=== PATIENT | male | born 1945 | race Caucasian/White ===

== ENCOUNTER 2017-03-10 17:41 | Inpatient (IN) | payer OTHER, MEDICAID ==
[2017-03-10 20:05] LABS: BASOPHILS # (AUTO) 0.1 X10^3/uL (0.0-0.1); BASOPHILS % (AUTO) 0.4 % (0.2-1.0); HEMATOCRIT 34.9 % (42.0-54.0); HEMOGLOBIN 11.9 g/dL (13.5-18.0); LYMPHOCYTES # (AUTO) 1.3 X10^3/uL (1.3-2.9); LYMPHOCYTES % (AUTO) 5.2 % (21.0-51.0); MEAN CORPUSCULAR HEMOGLOBIN 31.4 pg (27.0-34.0); MEAN CORPUSCULAR HGB CONC 34.1 g/dL (33.0-35.0); MEAN PLATELET VOLUME 7.3 fL (7.4-11.0); MONOCYTES # (AUTO) 1.2 x10^3/uL (0.3-0.8); MONOCYTES % (AUTO) 4.9 % (0.0-13.0); NEUTROPHILS # (AUTO) 22.6 x10^3/uL (2.2-4.8); NEUTROPHILS % (AUTO) 89.5 % (42.0-75.0); PLATELET COUNT 280 X10^3/uL (150.0-450.0); RED BLOOD COUNT 3.79 X10^6/uL (4.7-6.0); RED CELL DISTRIBUTION WIDTH 13.2 % (11.6-16.5); WHITE BLOOD COUNT 25.3 X10^3/uL (3.6-10.0)
[2017-03-10] MEDS: ROCEPHIN VIAL 1 GM 1 GM in NS 100 ML IV + SPIKE MINIBAG* 100 ML IV SCH (20:09)
[2017-03-10] MEDS: NS 1000 ML 1,000 ML IV SCH (20:09)
[2017-03-10 20:19] LABS: PLATELET MORPHOLOGY COMMENT NORMAL (NORMAL)
[2017-03-10 20:27] VITALS: BMI 18.4
[2017-03-10 20:35] LABS: ALANINE AMINOTRANSFERASE 30 Units/L (12-78); ALBUMIN 3.1 g/dL (3.4-5.0); ALKALINE PHOSPHATASE 88 Units/L (46-116); ASPARTATE AMINO TRANSFERASE 24 Units/L (15-37); BLOOD UREA NITROGEN 22 mg/dL (7-18); CALCIUM 8.8 mg/dL (8.5-10.1); CARBON DIOXIDE 27.4 mmol/L (21-32); CHLORIDE 103 mmol/L (98-107); COR CA(FOR HYPOALB) 9.5 mg/dL (8.5-10.1); CREATININE 1.23 mg/dL (0.70-1.30); SODIUM 136 mmol/L (136-145); TOTAL PROTEIN 6.7 g/dL (6.4-8.2); eGFR BLACK RACES > 60 (>60); eGFR NON BLACK RACES > 60 (>60)
[2017-03-10 21:38] LABS: BILIRUBIN,URINE NEGATIVE (NEGATIVE); BLOOD/HEMOGLOBIN,URINE 2+ (NEGATIVE); GLUCOSE, URINE NEGATIVE (NEGATIVE); KETONES,URINE NEGATIVE (NEGATIVE); LEUKOCYTE ESTERASE ,URINE 3+ (NEGATIVE); NITRITES,URINE POSITIVE (NEGATIVE); PROTEIN,URINE 1+ (NEGATIVE); UROBILINOGEN,URINE NORMAL (NORMAL)
[2017-03-10 21:45] LABS: APPEARANCE,URINE SLIGHTLY HAZY (CLEAR); BACTERIA,URINE 2+ /HPF (NEGATIVE); COLOR,URINE YELLOW (YELLOW); SQUAMOUS EPITHELIAL CELL,UR RARE /HPF (NEGATIVE)
--- NOTE | 2017-03-10 23:30 | RAD ---
HISTORY: 71-year-old male with shortness of breath and fever. Study: Frontal view of the chest. Comparison: None. Findings: The trachea is midline. The cardiac silhouette is unremarkable with prominent perihilar lung marking s and interstitium. The lungs are clear without focal consolidation, effusion or pneumothorax. Soft tissues are unremarkable. Osseous structures are unremarkable. IMPRESSION: 1. No acute cardiopulmonary disease. Reported By:
[2017-03-11 05:39] LABS: BASOPHILS # (AUTO) 0.1 X10^3/uL (0.0-0.1); BASOPHILS % (AUTO) 0.3 % (0.2-1.0); EOSINOPHILS % (AUTO) 0.1 % (0.9-2.9); HEMATOCRIT 34.6 % (42.0-54.0); HEMOGLOBIN 11.8 g/dL (13.5-18.0); LYMPHOCYTES # (AUTO) 1.4 X10^3/uL (1.3-2.9); LYMPHOCYTES % (AUTO) 7.6 % (21.0-51.0); MEAN CORPUSCULAR HEMOGLOBIN 31.8 pg (27.0-34.0); MEAN CORPUSCULAR HGB CONC 34.1 g/dL (33.0-35.0); MEAN CORPUSCULAR VOLUME 93.4 fL (80.0-100.0); MEAN PLATELET VOLUME 7.6 fL (7.4-11.0); MONOCYTES # (AUTO) 0.8 x10^3/uL (0.3-0.8); MONOCYTES % (AUTO) 4.5 % (0.0-13.0); NEUTROPHILS # (AUTO) 16.1 x10^3/uL (2.2-4.8); NEUTROPHILS % (AUTO) 87.5 % (42.0-75.0); PLATELET COUNT 252 X10^3/uL (150.0-450.0); RED CELL DISTRIBUTION WIDTH 13.4 % (11.6-16.5); WHITE BLOOD COUNT 18.5 X10^3/uL (3.6-10.0)
[2017-03-11 06:02] LABS: ALANINE AMINOTRANSFERASE 31 Units/L (12-78); ALBUMIN 2.9 g/dL (3.4-5.0); ALKALINE PHOSPHATASE 73 Units/L (46-116); ASPARTATE AMINO TRANSFERASE 23 Units/L (15-37); BLOOD UREA NITROGEN 17 mg/dL (7-18); CALCIUM 8.5 mg/dL (8.5-10.1); CARBON DIOXIDE 26.6 mmol/L (21-32); CHLORIDE 105 mmol/L (98-107); COR CA(FOR HYPOALB) 9.4 mg/dL (8.5-10.1); CREATININE 0.99 mg/dL (0.70-1.30); SODIUM 138 mmol/L (136-145); TOTAL PROTEIN 6.5 g/dL (6.4-8.2); eGFR BLACK RACES > 60 (>60); eGFR NON BLACK RACES > 60 (>60)
[2017-03-11] MEDS ORDERED: TYLENOL 325 MG TAB PO PRN (09:05)
[2017-03-11] MEDS: ROCEPHIN VIAL 1 GM 1 GM in NS 100 ML IV + SPIKE MINIBAG* 100 ML IV SCH (09:13)
--- NOTE | 2017-03-11 10:16 | CT ---
History: Altered mental status and hypertension Study: CT head without contrast. Sagittal and coronal reformations were provided. Comparison: None Findings: The ventricles and sulci are prominent without mass effect. There is no intracranial hemorr wanda or mass or edema and there is no subdural collection of fluid. The paranasal sinuses are clear. The calvarium is intact. There is an old infarction with encephalomalacia in the right occipital lobe . There is a smaller old infarct in the left occipital lobe. 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
[2017-03-11] MEDS: NS 1000 ML 1,000 ML IV SCH (10:42)
--- NOTE | 2017-03-11 12:58 | DR.H&P ---
H&P - History & Physical for Day of: H&P Date: 03/10/17 - Chief Complaint Chief Complaint: ams, leukocytosis, fever, cough - Allergies Allergies/Adverse Reactions: Allergies Allergy/AdvReac Type Severity Reaction Status Date / Time No Known Drug Allergies Allergy Verified 03/10/17 19:28 - History of Present Illness History of Present Illness: PT IS 71 WM DIRECT ADMIT FROM [facility] WITH CO FEVER, INCREASED CONFUSION, COUGH AND ELEVATED WBC'S. PT STATES "I THINK I HAVE PNEUMONIA" PT ADMITTED FOR EVALUATION OF ACUTE ILLNESS, BLOOD CULTURES ON ADMISSION, CBC CMP, CXR AND UA. PT STARTED ON IV ATBX, CONTINUE HOME MEDS - Past Medical History Past Medical History: Anxiety, Arthritis, COPD, GERD - Past Surgical History Surgical History: Unknown - Social History Does patient currently use any type of tobacco product: Yes Have you used tobacco products in the last 12 months: Yes Type of Tobacco Use: Cigarettes How many years tobacco product used: 50 Packs per day or dips/chews per day: 5 CIGS A DAY Does any household member use tobacco: No Alcohol Use: None Drug Use: None - Medications Home Medications: Acetaminophen [TYLENOL 325 MG TAB *] 650 mg PO Q6H PRN 03/10/17 [History Confirmed 03/10/17] Buspirone HCl 10 mg [BUSPAR TAB 10 MG *] 5 mg PO TID 03/10/17 [History Confirmed 03/10/17] Citalopram Hydrobromide [Celexa 10 mg] 10 mg PO DAILY 03/10/17 [History Confirmed 03/10/17] Donepezil Hydrochloride [ARICEPT TAB 5 MG *] 5 mg PO HS 03/10/17 [History Confirmed 03/10/17] Folic Acid [FOLIC ACID TAB 1 MG *] 1 mg PO DAILY 03/10/17 [History Confirmed ] Guaifenesin 400 mg PO BID 03/10/17 [History Confirmed 03/10/17] Levetiracetam [Keppra liquid] 15 ml PO BID 03/10/17 [History Confirmed 03/10/17] Multivit-Min/Iron Fum/Folic AC [Vtjks-Ttdojqn-Uqsvyajz Tablet] 1 ea PO DAILY [History Confirmed 03/10/17] Omeprazole 20 mg PO DAILY 03/10/17 [History Confirmed 03/10/17] Pramipexole Dihydrochloride [MIRAPEX 0.25 MG *] 0.25 mg PO BID 03/10/17 [ History Confirmed 03/10/17] Trazodone HCl 100 mg PO HS 03/10/17 [History Confirmed 03/10/17] - Review of Systems Constitutional: Fever Eyes: No Symptoms Reported ENT: No Symptoms Reported Respiratory: Cough, Shortness of Breath, Sputum, Wheezing Cardiovascular: No Symptoms Reported Gastrointestinal: No Symptoms Reported Genitourinary: No Symptoms Reported Musculoskeletal: Back Pain Skin: No Symptoms Reported Neurological: Weakness - Physical Exam Vital Signs: Temperature 98.9 F Pulse Rate [Right Radial] 73 Pulse Rate 69 Respiratory Rate 20 Blood Pressure [Right Arm] 155/81 O2 Sat by Pulse Oximetry 94 Oriented: Person Eyes: Normal Ear: Normal Nose: Normal Throat: Normal Respiratory: Rhonchi Throughout, RLL Diminished, LLL Diminished Cardiovascular: Normal : Normal Auscultation: Bowel Sounds: Normal Palpation: Normal Tenderness: Normal Skin: Decreased Turgur Musculoskeletal: Back:Lumbar Psychiatric: Anxiety Affect: Anxious Speech Pattern: Clear, Appropriate - Assessment/Plan (1) Altered mental status Status: Acute Plan: CT HEAD ON ADMISSION,ADMIT LABS INCLUDE BLOOD CULTURES. RESUME HOME MEDS. BP MONITORING, CXR (2) Fever Status: Acute (3) COPD (chronic obstructive pulmonary disease) with acute bronchitis Status: Acute (4) UTI (urinary tract infection) Status: Acute
[2017-03-11] MEDS ORDERED: PROVENTIL NEB TX 0.083% 2.5MG/ 3ML NEB PRN (13:43)
[2017-03-11] MEDS ORDERED: ECOTRIN TAB 325 MG PO SCH (14:00)
[2017-03-11] MEDS: BUSPAR PO SCH ×2 (14:33→22:15)
[2017-03-11] MEDS: ASPIRIN PO SCH (14:33)
[2017-03-11] MEDS ORDERED: LEVETIRACETAM PO SCH (21:00)
[2017-03-11] MEDS: DESYREL PO SCH (22:15)
[2017-03-11] MEDS: MUCINEX EXPECTORANT PO SCH (22:15)
[2017-03-11] MEDS: MIRAPEX TAB 0.25 MG PO SCH (22:15)
[2017-03-11] MEDS: ARICEPT TAB 5 MG PO SCH (22:16)
[2017-03-12] MEDS: NS 1000 ML 1,000 ML IV SCH ×2 (02:32→21:17)
[2017-03-12 05:47] LABS: BASOPHILS % (AUTO) 0.4 % (0.2-1.0); EOSINOPHILS # (AUTO) 0.1 x10^3/uL (0.0-0.2); HEMATOCRIT 36.4 % (42.0-54.0); HEMOGLOBIN 12.4 g/dL (13.5-18.0); LYMPHOCYTES % (AUTO) 11.7 % (21.0-51.0); MEAN CORPUSCULAR HEMOGLOBIN 31.7 pg (27.0-34.0); MEAN CORPUSCULAR VOLUME 93.3 fL (80.0-100.0); MEAN PLATELET VOLUME 7.6 fL (7.4-11.0); MONOCYTES # (AUTO) 0.6 x10^3/uL (0.3-0.8); MONOCYTES % (AUTO) 6.4 % (0.0-13.0); NEUTROPHILS # (AUTO) 7.1 x10^3/uL (2.2-4.8); NEUTROPHILS % (AUTO) 80.5 % (42.0-75.0); PLATELET COUNT 241 X10^3/uL (150.0-450.0); RED CELL DISTRIBUTION WIDTH 13.5 % (11.6-16.5); WHITE BLOOD COUNT 8.8 X10^3/uL (3.6-10.0)
[2017-03-12] MEDS: BUSPAR PO SCH ×3 (05:48→21:19)
[2017-03-12 06:15] LABS: ALANINE AMINOTRANSFERASE 32 Units/L (12-78); ALKALINE PHOSPHATASE 73 Units/L (46-116); ASPARTATE AMINO TRANSFERASE 22 Units/L (15-37); BLOOD UREA NITROGEN 12 mg/dL (7-18); CALCIUM 8.6 mg/dL (8.5-10.1); CARBON DIOXIDE 24.9 mmol/L (21-32); CHLORIDE 105 mmol/L (98-107); COR CA(FOR HYPOALB) 9.4 mg/dL (8.5-10.1); SODIUM 139 mmol/L (136-145); TOTAL PROTEIN 6.9 g/dL (6.4-8.2); eGFR BLACK RACES > 60 (>60); eGFR NON BLACK RACES > 60 (>60)
[2017-03-12] MEDS: NICOTINE PATCH TD SCH (09:30)
[2017-03-12] MEDS ORDERED: NICOTINE PATCH TD ONE (09:35)
[2017-03-12] MEDS: PriLOSEC PO SCH (09:40)
[2017-03-12] MEDS: CELEXA PO SCH (09:40)
[2017-03-12] MEDS: MIRAPEX TAB 0.25 MG PO SCH ×2 (09:41→21:19)
[2017-03-12] MEDS: FOLIC ACID TAB 1 MG PO SCH (09:41)
[2017-03-12] MEDS: MUCINEX EXPECTORANT PO SCH (09:41)
[2017-03-12] MEDS: ASPIRIN PO SCH (09:43)
[2017-03-12] MEDS: ROCEPHIN VIAL 1 GM 1 GM in NS 100 ML IV + SPIKE MINIBAG* 100 ML IV SCH (09:43)
[2017-03-12] MEDS: ROBITUSSIN (PLAIN) PO SCH (09:58)
--- NOTE | 2017-03-12 18:53 | PCM.PROG ---
Progress Note - Progress Note for Day of Date: 03/12/17 - Subjective Subjective: COUGH, CHEST CONGESTION - Past Medical Family Social History Past Med/Fam/Surg Hx: No changes since H&P Allergies: Allergies No Known Drug Allergies Allergy (Verified 03/10/17 19:28) - Review of Systems ROS: No change since H&P - Vital Signs and I&O's Vital Signs: Temperature 98.3 F Pulse Rate [Right Radial] 111 Pulse Rate 87 Respiratory Rate 20 Blood Pressure [Right Arm] 109/59 O2 Sat by Pulse Oximetry 95 Intake and Output: Intake & Output 03/10/17 03/11/17 03/12/17 03/13/17 11:59 11:59 11:59 11:59 Intake Total 1160 1829 600 Output Total 100 Balance 1060 1829 600 - Physical Exam Oriented: Person Eyes: Normal Ear: Normal Nose: Normal Throat: Normal Respiratory: Diminished, Rhonchi Cardiovascular: Normal : Normal Auscultation: Bowel Sounds: Normal Tenderness: Normal Skin: Decreased Turgur Musculoskeletal: Back:Lumbar Psychiatric: Anxiety Affect: Anxious Speech Pattern: Clear, Appropriate - Laboratory and Diagnostics Result Diagrams: 03/12/17 04:30 03/12/17 04:30 Labs: 03/10/17 19:46 Blood Blood Culture - Preliminary 03/10/17 19:40 Blood Blood Culture - Preliminary 03/10/17 20:43 Urine,Clean Catch Urine Culture - Preliminary Laboratory WBC 8.8 X10^3/uL (3.6-10.0) D 03/12/17 04:30 RBC 3.90 X10^6/uL (4.7-6.0) L 03/12/17 04:30 Hgb 12.4 g/dL (13.5-18.0) L 03/12/17 04:30 Hct 36.4 % (42.0-54.0) L 03/12/17 04:30 MCV 93.3 fL (80.0-100.0) 03/12/17 04:30 MCH 31.7 pg (27.0-34.0) 03/12/17 04:30 MCHC 34.0 g/dL (33.0-35.0) 03/12/17 04:30 RDW 13.5 % (11.6-16.5) 03/12/17 04:30 Plt Count 241 X10^3/uL (150.0-450.0) 03/12/17 04:30 Plt Count Comment Adequate (ADEQUATE) 03/10/17 19:40 MPV 7.6 fL (7.4-11.0) 03/12/17 04:30 Neut % 80.5 % (42.0-75.0) H 03/12/17 04:30 Lymph % 11.7 % (21.0-51.0) L 03/12/17 04:30 [place] % 6.4 % (0.0-13.0) 03/12/17 04:30 Eos % 1.0 % (0.9-2.9) 03/12/17 04:30 Baso % 0.4 % (0.2-1.0) 03/12/17 04:30 Neut # 7.1 x10^3/uL (2.2-4.8) H 03/12/17 04:30 Lymph # 1.0 X10^3/uL (1.3-2.9) L 03/12/17 04:30 [place] # 0.6 x10^3/uL (0.3-0.8) 03/12/17 04:30 Eos # 0.1 x10^3/uL (0.0-0.2) 03/12/17 04:30 Baso # 0.0 X10^3/uL (0.0-0.1) 03/12/17 04:30 Absolute Nucleated RBC 0.0 /100WBC 03/12/17 04:30 Total Counted 100 03/10/17 19:40 Neutrophils % (Manual) 93 % (39-76) H 03/10/17 19:40 Lymphocytes % (Manual) 5 % (13-43) L 03/10/17 19:40 Monocytes % (Manual) 2 % (4-9) L 03/10/17 19:40 Plt Morphology Comment Normal (NORMAL) 03/10/17 19:40 RBC Morphology Normal (NORMAL) 03/10/17 19:40 Sodium 139 mmol/L (136-145) 03/12/17 04:30 Corrected Sodium TNP 03/12/17 04:30 Potassium 3.7 mmol/L (3.5-5.1) 03/12/17 04:30 Chloride 105 mmol/L (98-107) 03/12/17 04:30 Carbon Dioxide 24.9 mmol/L (21-32) 03/12/17 04:30 BUN 12 mg/dL (7-18) 03/12/17 04:30 Creatinine 0.90 mg/dL (0.70-1.30) 03/12/17 04:30 Est GFR (MDRD) Af Amer > 60 (>60) 03/12/17 04:30 Est GFR (MDRD) Non-Af > 60 (>60) 03/12/17 04:30 Glucose 102 mg/dL (65-99) H 03/12/17 04:30 Calcium 8.6 mg/dL (8.5-10.1) 03/12/17 04:30 Corrected Calcium 9.4 mg/dL (8.5-10.1) 03/12/17 04:30 Total Bilirubin 0.30 mg/dL (0.2-1.0) 03/12/17 04:30 AST 22 Units/L (15-37) 03/12/17 04:30 ALT 32 Units/L (12-78) 03/12/17 04:30 Alkaline Phosphatase 73 Units/L (46-116) 03/12/17 04:30 Total Protein 6.9 g/dL (6.4-8.2) 03/12/17 04:30 Albumin 3.0 g/dL (3.4-5.0) L 03/12/17 04:30 Globulin 3.9 g/dL (2.5-4.5) 03/12/17 04:30 Albumin/Globulin Ratio 0.8 Ratio (1.1-2.1) L 03/12/17 04:30 Specimen Type Catherized urine 03/10/17 20:43 Urine Color Yellow (YELLOW) 03/10/17 20:43 Urine Appearance Slightly hazy (CLEAR) 03/10/17 20:43 Urine pH 8.0 (5.0 - 8.0) 03/10/17 20:43 Ur Specific [place] 1.015 (1.000-1.030) 03/10/17 20:43 Urine Protein 1+ (NEGATIVE) 03/10/17 20:43 Urine Glucose (UA) Negative (NEGATIVE) 03/10/17 20:43 Urine Ketones Negative (NEGATIVE) 03/10/17 20:43 Urine Occult Blood 2+ (NEGATIVE) 03/10/17 20:43 Urine Nitrite Positive (NEGATIVE) 03/10/17 20:43 Urine Bilirubin Negative (NEGATIVE) 03/10/17 20:43 Urine Urobilinogen Normal (NORMAL) 03/10/17 20:43 Ur Leukocyte Esterase 3+ (NEGATIVE) 03/10/17 20:43 Urine RBC 10-12 /HPF (NEGATIVE) 03/10/17 20:43 Urine WBC 50-55 /HPF (NEGATIVE) 03/10/17 20:43 Ur Squamous Epith Cells Rare /HPF (NEGATIVE) 03/10/17 20:43 Urine Bacteria 2+ /HPF (NEGATIVE) 03/10/17 20:43 Ur Culture Indicated? Yes/culture set up 03/10/17 20:43 Influenza Type A (PCR) Negative (NEGATIVE) 03/11/17 19:30 Influenza Type B (PCR) Negative (NEGATIVE) 03/11/17 19:30 - Plan (1) Altered mental status Status: Acute Plan: CT HEAD ON ADMISSION,ADMIT LABS INCLUDE BLOOD CULTURES. RESUME HOME MEDS. BP MONITORING, CXR (2) Fever Status: Acute (3) COPD (chronic obstructive pulmonary disease) with acute bronchitis Status: Acute (4) UTI (urinary tract infection) Status: Acute Plan: IV ATBX, JET NEBS. SUPPLEMENTAL O2
[2017-03-12] MEDS: DESYREL PO SCH (21:17)
[2017-03-12] MEDS: KEPPRA TAB 500 MG PO SCH (21:18)
[2017-03-12] MEDS: ARICEPT TAB 5 MG PO SCH (21:20)
[2017-03-13] MEDS: NS 1000 ML 1,000 ML IV SCH (05:19)
[2017-03-13] MEDS: BUSPAR PO SCH ×2 (05:44→14:29)
[2017-03-13 06:08] LABS: ALANINE AMINOTRANSFERASE 28 Units/L (12-78); ALBUMIN 3.1 g/dL (3.4-5.0); ALKALINE PHOSPHATASE 70 Units/L (46-116); ASPARTATE AMINO TRANSFERASE 25 Units/L (15-37); BLOOD UREA NITROGEN 14 mg/dL (7-18); CALCIUM 8.6 mg/dL (8.5-10.1); CARBON DIOXIDE 25.5 mmol/L (21-32); CHLORIDE 104 mmol/L (98-107); COR CA(FOR HYPOALB) 9.3 mg/dL (8.5-10.1); CREATININE 1.01 mg/dL (0.70-1.30); SODIUM 138 mmol/L (136-145); eGFR BLACK RACES > 60 (>60); eGFR NON BLACK RACES > 60 (>60)
[2017-03-13 06:21] LABS: BASOPHILS % (AUTO) 0.3 % (0.2-1.0); EOSINOPHILS # (AUTO) 0.1 x10^3/uL (0.0-0.2); EOSINOPHILS % (AUTO) 1.9 % (0.9-2.9); HEMATOCRIT 35.9 % (42.0-54.0); HEMOGLOBIN 12.5 g/dL (13.5-18.0); LYMPHOCYTES # (AUTO) 0.9 X10^3/uL (1.3-2.9); LYMPHOCYTES % (AUTO) 15.7 % (21.0-51.0); MEAN CORPUSCULAR HGB CONC 34.8 g/dL (33.0-35.0); MEAN CORPUSCULAR VOLUME 91.9 fL (80.0-100.0); MEAN PLATELET VOLUME 7.8 fL (7.4-11.0); MONOCYTES # (AUTO) 0.6 x10^3/uL (0.3-0.8); MONOCYTES % (AUTO) 9.7 % (0.0-13.0); NEUTROPHILS # (AUTO) 4.2 x10^3/uL (2.2-4.8); NEUTROPHILS % (AUTO) 72.4 % (42.0-75.0); PLATELET COUNT 239 X10^3/uL (150.0-450.0); RED CELL DISTRIBUTION WIDTH 13.1 % (11.6-16.5); WHITE BLOOD COUNT 5.8 X10^3/uL (3.6-10.0)
--- NOTE | 2017-03-13 06:51 | RAD ---
Examination: AP chest History: Fever, SOB Comparison 03/10/2017 Findings: Continued normal heart size with no evidence for localized pneumonia, atelectasis, pleural fluid or pneumothorax. Impression: No change or acute abnormality demonstrated. Reported By:
[2017-03-13] MEDS: ROCEPHIN VIAL 1 GM 1 GM in NS 100 ML IV + SPIKE MINIBAG* 100 ML IV SCH (09:12)
[2017-03-13] MEDS: ASPIRIN PO SCH (09:13)
[2017-03-13] MEDS: MIRAPEX TAB 0.25 MG PO SCH (09:13)
[2017-03-13] MEDS: KEPPRA TAB 500 MG PO SCH (09:13)
[2017-03-13] MEDS: PriLOSEC PO SCH (09:13)
[2017-03-13] MEDS: CELEXA PO SCH (09:13)
[2017-03-13] MEDS: ROBITUSSIN (PLAIN) PO SCH ×2 (09:13→09:14)
[2017-03-13] MEDS: NICOTINE PATCH TD SCH (09:14)
[2017-03-13] MEDS: FOLIC ACID TAB 1 MG PO SCH (09:14)
[2017-03-13 16:18] VITALS: BP 128/65
== END 2017-03-13 18:35 | DRG 202 ==
LOC: MED/SURG 17:41 → OBSVTOIN 03-12 08:30
PROVIDERS: ADMIT Internal Medicine; ATTEND Internal Medicine
DX: J20.8 Acute bronchitis due to other specified organisms (principal); J44.0 Chronic obstructive pulmonary disease with (acute) lower respiratory infection; N39.0 Urinary tract infection, site not specified; R41.82 Altered mental status, unspecified; D72.828 Other elevated white blood cell count; M13.89 Other specified arthritis, multiple sites; K21.9 Gastro-esophageal reflux disease without esophagitis; I10 Essential (primary) hypertension; B96.29 Other Escherichia coli [E. coli] as the cause of diseases classified elsewhere; R26.89 Other abnormalities of gait and mobility; R48.8 Other symbolic dysfunctions
CPT/HCPCS: 36415; 70450; 71045; 80053; 81001; 85025; 87040; 87086; 87088; 87186; 87502; 94640; 94667; 97535; A4222; G8978; G8979; G9168; G9169; G0378; J0696; J7613